=== PATIENT | female | born 1985 | race Two or more races ===

== ENCOUNTER 2016-09-21 22:07 | Emergency (ER) | payer MEDICAID ==
[2016-09-21] MEDS ORDERED: LEXAPRO20 M2 PO (22:41)
[2016-09-21] MEDS ORDERED: KETOROLAC TROME10 MG PO (23:44)
== END 2016-09-22 ==
LOC: EDMED 22:07
DX: S46.912A Strain of unspecified muscle, fascia and tendon at shoulder and upper arm level, left arm, initial encounter (principal); S43.402A Unspecified sprain of left shoulder joint, initial encounter; X50.1XXA Overexertion from prolonged static or awkward postures, initial encounter; Y92.89 Other specified places as the place of occurrence of the external cause